=== PATIENT | female | born 1990 | race Caucasian/White ===

== ENCOUNTER 2018-05-26 06:35 | Emergency (ER) | payer MEDICAID, SELFPAY ==
[2018-05-26 06:40] VITALS: BP 125/83; PULSE 87; RESP 18; TEMP 36.8; O2SAT 100
--- NOTE | 2018-05-26 06:46 | W.ED.GENAD ---
Discharge Plan Disposition Patient Disposition: HOME Condition: Improving Discharge Details Chief Complaint: EarProblem Clinical Impression: Acute right otitis media Primary Care Provider: Myriam Henry ED Provider: Chino Turner Home Meds and New Rx's Prescriptions: New amoxicillin-pot clavulanate 875-125 mg tablet 1 tab PO BID 10 Days Qty: 20 RF: 0 Continue levonorgestrel [Mirena] 1 EACH intrauterine device 1 ea Intrauterine ONCE Qty: 1 RF: 0 multivitamin [One Daily] 1 EACH tablet 1 ea PO DAILY RF: 0 cholecalciferol (vitamin D3) 1,000 UNIT tablet 1,000 unit PO DAILY RF: 0 ketotifen fumarate 5 ML drops 1 drp Ophthalmic BID PRNQty: 1 RF: 3 clonazepam 0.25 MG tablet,disintegrating 0.25 mg PO DAILY Qty: 15 RF: 0 Discharge Instructions Instructions: Otitis Media (ED) Additional Instructions: Please take antibiotics as prescribed. I recommend that you take either an [id number] probiotic or live culture yogurt once daily in the middle of the day while taking antibiotics. Follow-up with regular doctor if not improving in 5 days time. May use Sudafed, available [id number], for 3 days to help with decongestion. Tylenol if needed for pain Medical Decision Making 28-year-old female presents with nearly a week of cough and congestion, now complicated by 2 days of right ear pain. The external ear canal is cerumen filled which was really moved with flushing. Reexamination reveals right acute otitis media. I will treat her with a course of antibiotics. She stable for outpatient management and understands return precautions to the ED. HPI General Mode of arrival: ambulatory. Date/Time Provider Initiated Documentation: 05/26/18 06:37. Limitations to Documentation: no limitations. Information obtained by: patient. History of Present Illness 28 year old F presents to the emergency department with the chief complaint of Right ear pain, described as moderate, Quality is described as aching, Patient reports no radiation. Patient started experiencing this day(s) and it has been constant. No exacerbating factors reported . HPI Narrative: 28-year-old female presents from home with history of 4 days of cough, congestion, associated with 2 days of progressive, constant, achy right ear pain. Related Data Home Medications Medication Instructions Recorded Confirmed levonorgestrel [Mirena] 1 ea INTRAUTERINE ONCE #1 implant 06/12/15 05/26/18 cholecalciferol (vitamin D3) 1,000 unit PO DAILY 11/28/16 05/26/18 multivitamin [One Daily] 1 ea PO DAILY 11/28/16 05/26/18 ketotifen fumarate 1 drp OPHTHALMIC BID PRN #1 bottle 11/29/16 05/26/18 clonazepam 0.25 mg PO DAILY #15 tab 07/23/17 05/26/18 amoxicillin-pot clavulanate 1 tab PO BID 10 Days #20 tab 05/26/18 Previous Rx's Medication Instructions Recorded clonazepam 0.25 mg PO DAILY #15 tab 07/23/17 amoxicillin-pot clavulanate 1 tab PO BID 10 Days #20 tab 05/26/18 Allergies Allergy/AdvReac Type Severity Reaction Status Date / Time No Known Allergies Allergy Unverified 01/13/18 11:28 General Stated Complaint: EarProblem OCTAVIO: 5 Review of Systems Review of Systems Four systems reviewed and otherwise negative [facility] Family History Mother Essential hypertension Hyperlipidemia Father Neoplasm Grandfather Diabetes Essential hypertension Heart disease Hyperlipidemia Grandfather Heart disease Brother No problems noted. Brother No problems noted. Grandmother Hyperlipidemia Grandmother No problems noted. Daughter No problems noted. Social History Smoking/Tobacco Use Status: Former Tobacco Use Surgical History Endoscopic Carpal Tunnel release (03/11/17) Exam Narrative Exam Narrative: GEN: awake, alert, oriented 3. Pleasant, well groomed, interactive. HEAD: Normocephalic, atraumatic ENT: Mucous membranes moist, oropharynx unremarkable, External ear exam unremarkable. The left tympanic membrane is fluid-filled but otherwise unremarkable. The right ear initially occluded by cerumen which was removed and reveals erythematous distended right tympanic membrane with loss of light review EYES: PERRL, EOMI NECK: Full ROM, no TALI, no menigismus EXT: Full ROM, no edema, no rash Neuro: Grossly normal neurologic exam, conversant, interactive. Psych: Speech fluent, thoughts congruent, affect normal Course Vital Signs Temperature 36.8 C 05/26/18 06:40 Pulse 87 05/26/18 06:40 Respiratory Rate 18 05/26/18 06:40 Blood Pressure 125/83 05/26/18 06:40 Pulse Oximetry 100 05/26/18 06:40 Temperature 36.8 C 05/26/18 06:40 Temperature Source Temporal Artery Scan 05/26/18 06:40 Pulse 87 05/26/18 06:40 Respiratory Rate 18 05/26/18 06:40 Respiratory Effort 05/26/18 06:40 Blood Pressure 125/83 05/26/18 06:40 Blood Pressure Position Sitting 05/26/18 06:40 Pulse Oximetry 100 05/26/18 06:40 Oxygen Delivery Method Room Air 05/26/18 06:40 Oxygen Flow Rate 0 05/26/18 06:40
== END 2018-05-26 07:04 | disposition home or self-care (01) ==
PROVIDERS: Emergency Provider Emergency Medicine
DX: H66.91 Otitis media, unspecified, right ear (principal); H61.21 Impacted cerumen, right ear
CPT/HCPCS: 69209; 99283

== ENCOUNTER 2025-04-08 08:45 | Outpatient (CLI) | payer BC, SELFPAY ==
[2025-04-08 09:08] LABS: HCG Quant, Pregnancy 1 mIU/mL (1-3); TSH 2.45 uIU/mL (0.36-3.74)
[2025-04-09 01:39] LABS: FSH 8.2 mIU/mL (See Note)
[2025-04-11 12:38] LABS: Adrenocorticotropic Hormone, P 29 pg/mL
[2025-04-14 11:35] LABS: IGF-1, LC/MS, S 114 ng/mL (53-331)
[2025-04-21 19:29] LABS: Testosterone, Free 6.0 pg/mL (0.1-6.4)
== END 2025-04-08 08:46 | disposition home or self-care (01) ==
LOC: LBO 08:46
PROVIDERS: Visit Provider Internal Medicine
DX: E28.2 Polycystic ovarian syndrome (principal)
CPT/HCPCS: 36415; 82533; 82627; 84402; 84403; 82024; 82670; 83001; 84144; 84146; 84305; 84439; 84443; 84702